=== PATIENT | male | born 1995 ===

== ENCOUNTER 2024-01-16 12:01 | Outpatient (CLI) | payer BC, SELFPAY ==
[2024-01-16 12:40] LABS: Basophils Percent Auto 0.9 % (0.2-1.2); Eosinophils Absolute Auto 0.3 K/mm3 (0-0.3); Eosinophils Percent Auto 6.9 % (0-4.4); Hematocrit 46.5 % (42.0-52.0); Hemoglobin 16.2 g/dL (14.0-18.0); Immature Granulocyte Absolute 0.01 K/mm3 (0.00-0.031); Immature Granulocyte Percent A 0.2 % (0-0.5); Lymphocytes Absolute Auto 1.99 K/mm3 (0.9-3.2); Lymphocytes Percent Auto 43.1 % (18.3-44.2); Mean Corpuscular HGB Conc 34.8 g/dl (32-36); Mean Corpuscular Hemoglobin 27.7 pg (26-34); Mean Corpuscular Volume 79.5 fl (80-100); Mean Platelet Volume 9.9 fl (7.4-10.4); Monocytes Absolute Auto 0.4 K/mm3 (0.1-0.6); Monocytes Percent Auto 8.7 % (2.6-8.5); Neutrophils Absolute Auto 1.9 K/mm3 (1.3-6.7); Neutrophils Percent Auto 40.2 % (45.5-73.1); Platelet Count Result 134 k/mm3 (150-375); Red Blood Count 5.85 M/mm3 (4.6-6.20); Red Cell Distribution Width 14.5 % (11.5-14.5); White Blood Count 4.6 K/mm3 (4.5-10.0)
[2024-01-16 12:54] LABS: Alanine Aminotransferase 135 U/L (6-50); Albumin Level 4.2 g/dL (3.5-5.1); Alkaline Phosphatase 184 U/L (38-126); Anion Gap 10 mmol/L (4-12); Aspartate Amino Transferase 72 U/L (17-59); Bilirubin,Total 0.7 mg/dL (0.2-1.3); Blood Urea Nitrogen 15 mg/dL (9-20); Calcium 8.9 mg/dL (8.4-10.2); Carbon Dioxide 27 mmol/L (22-30); Chloride 99 mmol/L (98-107); Cholesterol 193 mg/dL (0-200); Estimated Glomerular Filt Rate > 60; Glucose 407 mg/dL (65-110); Potassium 4.2 mmol/L (3.4-5.0); Sodium 136 mmol/L (137-145)
[2024-01-16 13:04] LABS: LDL Cholesterol Direct 78 mg/dL
[2024-01-16 13:05] LABS: Triglycerides 799 mg/dL (<150)
[2024-01-16 13:15] LABS: Hemoglobin A1C 11.7 % (<5.7)
[2024-01-16 13:24] LABS: Total Triiodothyronine (T3) 1.64 NG/ML (0.97-1.69)
[2024-01-16 13:49] LABS: Free T4 Free Thyroxine 1.01 ng/mL (0.78-2.19)
== END 2024-01-16 12:02 | disposition home or self-care (01) ==
LOC: ANHLAB 12:07
PROVIDERS: PCP Registered Nurse; Visit Provider Registered Nurse
DX: E11.9 Type 2 diabetes mellitus without complications (principal); I10 Essential (primary) hypertension; R53.83 Other fatigue; E78.5 Hyperlipidemia, unspecified
CPT/HCPCS: 36415; 80053; 80061; 83036; 84439; 84443; 84480; 85025

== ENCOUNTER 2024-01-21 09:52 | Emergency (ER) | payer BC, SELFPAY ==
[2024-01-21 10:05] VITALS: BP 124/86; PULSE 89; RESP 16; TEMP 37; O2SAT 99
--- NOTE | 2024-01-21 10:17 | ED.EAR ---
HPI - Ear Problem General Chief complaint: Ear Stated complaint: right ear/jaw pain Time Seen by Provider: 01/21/24 10:07 Source: patient and RN notes reviewed Mode of arrival: ambulatory Limitations: no limitations History of Present Illness HPI Narrative: Patient presents today with a 2 day history of right ear pain. Denies any additional symptoms to include cough, congestion, rhinorrhea, sore throat fever. Denies decreased hearing or drainage. Currently rates his pain 7/10, which increases with chewing. He has tried ibuprofen with some mild relief. Patient works for the [employer] and wears ear plugs daily. Related Data Allergies Allergy/AdvReac Type Severity Reaction Status Date / Time No Known Allergies Allergy Unverified 01/21/24 09:59 Review of Systems Review of Systems: CONSTITUTIONAL: Denies body aches, fever, chills, or sweats. EYES: Denies visual changes, redness, or discharge. ENT: Denies rhinorrhea, congestion, sore throat. + right ear pain CARDIOVASCULAR: Denies chest pain, palpitations, or edema. RESPIRATORY: Denies cough or dyspnea. GASTROINTESTINAL: Denies abdominal pain, nausea, vomiting, or diarrhea. GENITOURINARY: Denies dysuria or hematuria. SKIN: Denies rash, itching, or wounds. MUSCULOSKELETAL: Denies back pain, joint pain, or myalgia. NEUROLOGIC: Denies headache, numbness, tingling, or weakness. PSYCH: Denies depression or anxiety. [facility] Family History Family History Other Family history of blood dyscrasia Hypertension Social History Social History Smoking status: Never smoker Alcohol intake: never Comments At time of signature, I have reviewed and agree with nursing past medical, surgical, social and family history unless otherwise noted. Please see nursing chart for further information. There is no relevant family history pertinent to the presenting complaint Exam Narrative: GENERAL: Well-appearing, well-nourished, and in no acute distress. HEAD: Normocephalic, atraumatic. EYES: EOMI. No redness or drainage. Conjunctivae normal. ENT: Mucous membranes pink and moist. Nares clear. No rhinorrhea. Bilateral TMs normal. Left ear canal normal. Right ear canal moderately edematous and erythematous. Right tragal tenderness. NECK: Normal AROM. Supple. No lymphadenopathy. CHEST: No respiratory distress. EXTREMITIES: Normal range of motion. No edema. SKIN: Warm, dry, no rash. Capillary refill normal. Normal skin turgor. NEURO: No focal deficits. Alert and oriented x3. Gait steady. PSYCH: Normal affect. No signs of depression or anxiety. Course Course Level of Care: Express Care Visit Vital Signs Vital signs: Vital Signs Temperature 98.6 F 01/21/24 10:05 Pulse Rate 89 01/21/24 10:05 Respiratory Rate 16 01/21/24 10:05 Blood Pressure 124/86 01/21/24 10:05 Pulse Oximetry 99 01/21/24 10:05 Oxygen Delivery Room Air 01/21/24 10:05 Temperature 98.6 F 01/21/24 10:05 Pulse Rate 89 01/21/24 10:05 Respiratory Rate 16 01/21/24 10:05 Blood Pressure 124/86 01/21/24 10:05 Pulse Oximetry 99 01/21/24 10:05 Oxygen Delivery Room Air 01/21/24 10:05 Reviewed Medical Decision Making MDM Narrative Medical decision making narrative: Patient will be treated with Ciprodex for his right otitis externa. Anticipatory guidance given. Differential Diagnosis Differential Diagnosis: Otitis media, otitis externa, ruptured TM, serous otitis Vital Signs Vital Signs: Vital Signs Temperature 98.6 F 01/21/24 10:05 Pulse Rate 89 01/21/24 10:05 Respiratory Rate 16 01/21/24 10:05 Blood Pressure 124/86 01/21/24 10:05 Pulse Oximetry 99 01/21/24 10:05 Oxygen Delivery Room Air 01/21/24 10:05 Temperature 98.6 F 01/21/24 10:05 Pulse Rate 89 01/21/24 10:05 Respiratory Rate 16 01/21/24 10:05 B
== END 2024-01-21 10:25 | disposition home or self-care (01) ==
PROVIDERS: Emergency Provider Nurse Practitioner; PCP Family Medicine
DX: H60.501 Unspecified acute noninfective otitis externa, right ear (principal)
CPT/HCPCS: 99213; G0463

== ENCOUNTER 2024-04-17 11:04 | Outpatient (CLI) | payer BC, SELFPAY ==
[2024-04-17 12:55] LABS: Creatinine Urine 103.9 mg/dL
[2024-04-17 13:00] LABS: MALB Creatinine Ratio 11.6 mg/g (0-30); Microalbumin Urine Random 12.1 mg/L (0-16.7)
== END 2024-04-17 11:05 | disposition home or self-care (01) ==
LOC: ANHLAB 11:05
PROVIDERS: PCP Family Medicine; Visit Provider Family Medicine
DX: E11.9 Type 2 diabetes mellitus without complications (principal)
CPT/HCPCS: 36415; 82043; 83036

== ENCOUNTER 2024-07-15 11:17 | Outpatient (CLI) | payer BC, SELFPAY ==
[2024-07-15 12:25] LABS: Alanine Aminotransferase 115 U/L (6-50); Albumin Level 4.3 g/dL (3.5-5.1); Alkaline Phosphatase 133 U/L (38-126); Anion Gap 11 mmol/L (4-12); Aspartate Amino Transferase 67 U/L (17-59); Bilirubin,Total 0.7 mg/dL (0.2-1.3); Blood Urea Nitrogen 11 mg/dL (9-20); Calcium 9.1 mg/dL (8.4-10.2); Carbon Dioxide 26 mmol/L (22-30); Chloride 101 mmol/L (98-107); Cholesterol 188 mg/dL (0-200); Estimated Glomerular Filt Rate > 60; Glucose 123 mg/dL (65-110); HDL Direct 27 mg/dL; Potassium 4.2 mmol/L (3.4-5.0); Sodium 138 mmol/L (137-145); Triglycerides 168 mg/dL (<150)
[2024-07-15 12:36] LABS: LDL Cholesterol Direct 117 mg/dL
[2024-07-15 13:26] LABS: Hemoglobin A1C 7.9 % (<5.7)
== END 2024-07-15 11:18 | disposition home or self-care (01) ==
LOC: ANHLAB 11:19
PROVIDERS: PCP Family Medicine; Visit Provider Registered Nurse
DX: E78.5 Hyperlipidemia, unspecified (principal); E11.9 Type 2 diabetes mellitus without complications
CPT/HCPCS: 36415; 80053; 80061; 83036

== ENCOUNTER 2024-10-05 09:33 | Emergency (ER) | payer BC, SELFPAY ==
--- NOTE | 2024-10-05 09:34 | ED.SKABFB ---
HPI - Skin/Abscess/Foreign Bdy General Chief complaint: Skin/Abscess/Foreign Body Stated complaint: Rash/Hives Time Seen by Provider: 10/05/24 09:34 Source: patient Mode of arrival: ambulatory Limitations: no limitations History of Present Illness HPI narrative: Benji is a 29-year-old male patient presenting to the clinic today with complaints of a itchy rash times 4-5 days. He reports no difficulty breathing, swallowing, drooling, or tongue swelling. Denies any new foods or medications but states that he did wash his clothes at the laundry mat and is wondering if another detergent got onto his clothes and cause this rash. No one else at home has the same rash. Denies any fevers, chills, or body aches. No URI symptoms. Related Data Home Medications ?Medication ?Instructions ?Recorded ?Confirmed ?Last Taken ?Type metformin 1,000 mg tablet mg 10/05/24 Unknown History semaglutide 0.25 mg or 0.5 mg (2 mg subcut 10/05/24 Unknown History mg/3 mL) subcutaneous pen injector (Ozempic) Allergies Allergy/AdvReac Type Severity Reaction Status Date / Time No Known Allergies Allergy Verified 10/05/24 09:36 Review of Systems Review of Systems: Pertinent positives per HPI. Patient denies any fever, chills, headache, visual changes, dizziness, cough, runny nose, sore throat, shortness of breath, chest pain, palpitations, nausea, vomiting, diarrhea, constipation, abdominal pain, or any urinary issues. PMFSH Family History Family History Other Family history of blood dyscrasia Hypertension Social History Social History Smoking status: Never smoker Alcohol intake: never Comments At the time of my signature, I reviewed and agree with the nursing past medical, surgical, social, and family history. There is no relevant family history pertinent to the patient complaint. Exam Narrative: General: Well-developed, well nourished, in no apparent distress Head: Normocephalic, atraumatic. Cardio: Regular rate and rhythm, s1 and s2 normal, no murmur appreciated. Resp: Clear to auscultation bilaterally, no rhonchi, rales, wheezing or rubs. Integumentary: [place], warm, and dry, intact without lesion, red, raised, wheeled itchy rash to arms, back, legs, and abdomen Course Course Emergency Course: Portions of this record may have been created with voice recognition software. Level of Care: Express Care Visit Vital Signs Vital signs: Vital Signs Temperature 36.9 C 10/05/24 09:45 Pulse Rate 90 10/05/24 09:45 Respiratory Rate 18 10/05/24 09:45 Blood Pressure 143/97 H 10/05/24 09:45 Pulse Oximetry 100 10/05/24 09:45 Oxygen Delivery Room Air 10/05/24 09:45 Temperature 36.9 C 10/05/24 09:45 Pulse Rate 90 10/05/24 09:45 Respiratory Rate 18 10/05/24 09:45 Blood Pressure 143/97 H 10/05/24 09:45 Pulse Oximetry 100 10/05/24 09:45 Oxygen Delivery Room Air 10/05/24 09:45 Vital signs reviewed MDM - Skin/Abscess/Foreign Bdy MDM Narrative Medical decision making narrative: At the time of visit patient is resting comfortably on the exam table. Patient appears to be nontoxic. Plan I suspect patient has hives. Prescription for prednisone and Pepcid was sent to the pharmacy. Instructed the patient to take Benadryl for itching. He may also take [id number] antihistamine such as Zyrtec or Claritin. Denies any difficulty swelling or any respiratory distress. Oxygen saturations 100% on room air in his lung sounds are clear in the office today. Supportive measures were discussed with the patient and they voiced understanding discharge instructions and agrees to treatment plan. Return precautions reviewed Differential Diagnosis Differential diagnosis: Likely abscess of skin or subcutaneous tissue, viral exanthem, dermatophytosis, urticaria, herpes zoster, allergic reaction to drug, cellulitis, eczema, insect bites, impetigo and contact dermatitis Discharge Plan Discharge Clinical Impression: Urticaria Patient Disposition: Home Condition: Stable Instructions: Antibiotic Form, Urticaria (ED) Additional Instructions: Take Pepcid as prescribed Take prednisone as directed Avoid hot showers Avoid scratching as this can cause a secondary infection May take benadryl 25-50mg every 6 hours as needed for itching. Follow up with your PCP in 3-5 days if symptoms persist or sooner if they worsen Go to the Emergency Room if symptoms worsen- fever, rash spreading with treatment, shortness of breath, tongue swelling, drooling, or chest pain Patient Language: Thai Prescriptions: New prednisone 10 mg tablet 10 mg PO DAILY Qty: 30 0RF Rx Instructions: 60mg po daily on day 1, 40mg po daily on days 2-4, 30mg po daily on days 5-6, 20mg po daily on days 7-8, 10mg po daily on days 9-10 famotidine [Pepcid] 40 mg tablet 40 mg PO DAILY 10 Days Qty: 10 0RF No Action metformin 1,000 mg tablet Ozempic 0.25 mg or 0.5 mg (2 mg/3 mL) pen injector SUBCUT Follow-up/Referrals: Lauri Lamb MD [Primary Care Provider] - Stand Alone Forms: Work/School Release IP Time of Disposition: 09:54 Quality NIHSS Nursing Documentation ED NIHSS nursing documentation: reviewed/agree
[2024-10-05 09:45] VITALS: BP 143/97; PULSE 90; RESP 18; TEMP 36.9; O2SAT 100
== END 2024-10-05 10:00 | disposition home or self-care (01) ==
PROVIDERS: Emergency Provider Nurse Practitioner Family; PCP Family Medicine
DX: L50.9 Urticaria, unspecified (principal); Z79.84 Long term (current) use of oral hypoglycemic drugs
CPT/HCPCS: 99213; G0463

== ENCOUNTER 2024-10-30 07:21 | Outpatient (CLI) | payer BC, SELFPAY ==
--- OUTSIDE RECORDS SUMMARY | 2024-10-30 07:25 | XMS_ITS | Encounter Summary ---
Author Organization [facility] Address [address] [place] [address] Care Team Providers Care Charging Manipulator Name Role Phone Lauri Lamb MD Primary Care Provider Encounter Details Date Type Department Care Team (Late Contact Info) Description 11/02/2018 Lab Requisition [facility] Care Pathology Lab [address] [place] [address] Victor Hugo Bernard MD [address] [address] Illness Social History Tobacco Use Types Packs/Day Years Used Date Smoking Tobacco: Never Assessed Sex and Gender Information Value Date Recorded Sex Assigned at Not on file Legal Sex Male 12:04 PM CDT Gender Identity Not on file Sexual Orientation Not on file documented as of this encounter Plan of Treatment Upcoming Encounters Date Type Department Care Team (Late Contact Info) Description 04/17/2025 11:30 AM CDT Appointment [facility] [address] [place] [id number] Susanne Shrestha, MANAGING EDITOR-NEUROPHYSIOLOGICAL TECHNICIAN [address] [place] [address] [facility] [place] [address] 04/17/2025 12:30 PM CDT Office Visit [facility] [address] [facility], [place] [address] Susanne Shrestha, MANAGING EDITOR-NEUROPHYSIOLOGICAL TECHNICIAN [address] [place] [address] documented as of this encounter Procedures Procedure Name Priority Date/Time Associated Diagnosis Comments PATHOLOGY TISSUE Routine 10/31/2018 12:1 2 PM CDT Illness documented in this encounter Results * PATHOLOGY TISSUE (10/31/2018 12:12 PM CDT) Case Report Surgical Pathology Report Case: [id number] Authorizing Provider: Victor Hugo Bernard MD Collected: 10/31/2018 12:12 PM Pathologist: Erinn Cook MD Received: 11/02/2018 12:12 PM Specimen: Slide Consultation, OSC: [id number] 11/07/2018 9:16 AM CDT [facility] PATHOLOGY LAB Final Diagnosis Liver, biopsy (OSC: [id number], 10/31/18): - Well differentiated hepatocellular lesion (SEE COMMENT) - Steatohepatitis, NAFLD activity score 5/8 - Extensive bridging fibrosis, stage 3 11/07/2018 9:16 AM CDT [facility] PATH[facility] Microscopic Description and Comment Sections of the liver biopsy provided for review show mild steatosis (10%) in an azonal distribution and moderate lobular inflammation (2-4 foci/20x). There are frequent ballooned hepatocytes with Maira Denk bodies. There is also architectural distortion due to fibrotic bands. Scattered residual portal tracts are identified. Portal/septal inflammation is minimal to mild without interface activity.The trichrome stain provided is uninterpretable due to technical artifact. The provided reticulin stain shows no loss of reticulin. The PASD stain is negative for alpha-1 antitrypsin globules, the iron stain is negative, and the PAS stain is noncontributory. Although the architecture is altered due to fibrosis, an obvious mass-forming lesion is not evident in this material. A deeper repeat H&E and trichrome stain (performed at [facility]) again show steatosis, inflammation, and ballooning, as well as dense perisinusoidal fibrosis, periportal fibrosis, extensive bridging and focal nodular formation worrisome for cirrhosis. However, in several areas, the fibrotic septa only incompletely surround small nodules, conservatively staged as 3 (bridging fibrosis). In addition, these deeper sections of the cores show a span of ~5 mm without fibrotic bands or nodularity. In this area, there are no portal tracts (absence of normal or cirrhotic architecture) and mild sinusoidal dilatation. Additional immunostains performed and interpreted at [facility] show Glypican-3 is negative, including in the area of interest; beta-catenin has no nuclear staining including in the area of interest or otherwise; a CD34 stain is negative for a diffuse sinusoidal pattern. A glutamine synthetase stain was attempted, but the area of interest is not present on this even deeper section. The liver biopsy has several near-cirrhotic cores with steatosis, inflammation, and ballooning diagnostic for steatohepatitis. In the correct clinical setting, the findings would support a diagnosis of ROMERO, with NAFLD activity score of 5/8 (steatosis-1, inflammation-2, ballooning-2), and stage 3 (nearly 4). There is also a well-defined area without the same background architecture. In the clinical context of mass lesions, this could correlate with a small lesion or a small portion of a mass-forming lesion. The differential diagnosis includes regenerative nodules, adenoma, or even very well differentiated hepatocellular carcinoma. In a cirrhotic liver, neoplastic hepatocellular lesions are typically hepatocelllular carcinoma rather than adenoma. However, in the small amount of tissue available, the morphologic features are extremely bland, do not show loss of reticulin, do not show Glypican 3 staining, and do not have diffuse sinusoidal CD34 as commonly seen in HCC; there is also no evidence of a beta-catenin mutation. Another possibility for this lesion is a large regenerative nodule in the setting of cirrhosis (total length on the slide is 0.5 cm). Unfortunately, the extremely small sample size does not allow for a more definitive classification. 11/07/2018 9:16 AM [facility] Clinical History 11/07/2018 9:16 AM [facility] Materials Received Received are 12 slide(s) and 1 block (A1) labeled [id number] along with a copy of the outside pathology report. [place] [address]. All original materials are returned to the referring institution, along with a copy of our final report. 11/07/2018 9:16 AM T [facility] PATHOLOGY LAB Disclaimer The performance characteristics of all immunohistochemical and indirect immunofluorescence stains (if any) cited in this report were determined by the Histopathology Laboratory of [facility]. Some of these tests were developed by our own laboratory and have not been cleared or approved by the US Food and Drug Administration. The FDA does not require this test to go through premarket FDA review. These tests are used for clinical purposes. They should not be regarded as investigational or for research. This laboratory is certified under the Clinical Laboratory Improvement Amendments (CLIA) as qualified to perform high complexity clinical laboratory testing. This case has been personally reviewed and interpreted by the attending (teaching) pathologist. 11/07/2018 9:16 AM T [facility] PATH[facility] LAB Embedded Images 11/07/2018 9:16 AM T [facility] PATHOLOGY LAB Pathology/Cytolo gy SURGICAL PATHOLOGY CONSULTATION AND REPORT ON REFERRED SLIDES PREPARED ELSEWHERE / Unknown 10/31/2018 12:12 PM CDT 11/02/2018 12:12 PM CDT us Victor Hugo Bernard MD LAB - PATHOLOGY/CYTOLOGY ORDER ANAMARIA Final Result [facility]OLOGY LAB [address] [phone] documented in this encounter Visit Diagnoses Diagnosis Illness Other unknown and unspecified cause of morbidity or mortality documented in this encounter Care Teams Charging Manipulator Relationship Specialty Start Date End Date Lauri Lamb MD [address] [place] [address] PCP - General Family Medicine 11/21/18 documented as of this encounter
--- OUTSIDE RECORDS SUMMARY | 2024-10-30 07:25 | XMS_ITS | Clinical Summary ---
Author Organization [facility] Remitly Address [address] [place] [address] Care Team Providers Care [employer] Music Teacher Name Role Phone Lauri Lamb MD Primary Care Provider Source Comments [facility],non-owned Affiliates and Associated Physician Practices is amultiple site organization consisting of ambulatory clinics and hospital sitesin [place], [place], [place] and [place]. This disclosure is being madepursuant to the Care Everywhere program and may not contain all information available regarding this patient. Last updated 18.[facility] Rem[facility]ly Allergies No known active allergies Medications * Be aware that medications may not be up to date on this document. Alwaysverify current medications with the patient. vitamin E (TOCOPHERYL) 400 UNIT capsule Take 1 (one) capsule by mouth 2 times daily Active Other Take 2 Each by mouth once daily Liver health Active Milk Thistle 1000 MG CAPS Take 1 capsule by mouth once daily Active Ozempic, 0.25 or 0.5 MG/DOSE, 2 MG/3ML SOPN INJECT 0.25 MG SUBCUTANEOUSLY ONCE A WEEK 4 Active metFORMIN (Glucophage) 1000 MG tablet Take 1 (one) tablet by mouth 2 times daily 4 Active Active Problems Problem Noted Date Diagnosed Date Elevated liver enzymes 11/28/2018 Liver lesion 11/21/2018 Encounters Date Type Department Care Team Description 10/15/2024 1:35 PM CDT - 10/15/2024 11:59 PM CDT Hospital Encounter [facility] LAB OP DRAW STATION [address] [place] [address] Susanne Shrestha APRN-CNP Discharge Disposition: Home or Self Care 10/15/2024 1:30 PM CDT Office Visit [facility] - [facility] [address] [place] [address] Nathan Rutherford MD Swanson, Stephanie N, APRN-CNP Liver lesion (Primary Dx); Other cirrhosis of liver (HCC); Metabolic dysfunction-associated steatohepatitis (MASH); Elevated liver enzymes 10/15/2024 9:55 AM CDT - 10/15/2024 1:34 PM CDT Hospital Encounter [facility] MRI [address] [place] [address] Susanne Shrestha APRN-CNP Discharge Disposition: Home or Self Care 10/15/2024 Travel from Last 3 Months Immunizations Immunization Administration Dates Next Due JOSE LUISID MAYRA PRIMARY 18+YR 08/25/2020 Social History Tobacco Use Types Packs/Day Years Used Date Smoking Tobacco: Never Smokeless Tobacco: Never Tobacco Cessation:Counseling Given: Not Answered Alcohol Use Standard Drinks/Week Comments No 0 (1 standard drink = 0.6 oz pur e alcohol) Sex and Gender Information Value Date Recorded Sex Assigned at Not on file Legal Sex Male 12:04 PM CDT Gender Identity Not on file Sexual Orientation Not on file Last Filed Vital Signs Vital Sign Reading Time Taken Comments Blood Pressure 138/100 10/15/2024 12:31 PM CDT Pulse 87 10/15/2024 12:31 PM CDT Temperature 36.9 C (98.5 F) 10/15/2024 12:31 PM CDT Respiratory Rate 21 04/04/2024 4:15 PM CDT Oxygen Saturation 100% 10/15/2024 12:31 PM CDT Inhaled Oxygen Concentration - - Weight 70.1 kg (154 lb 9.6 oz) 10/15/2024 12:31 PM CDT Height 175.3 cm (5' 9 ) 10/15/2024 12:31 PM CDT Body Mass Index 22.83 10/15/2024 12:31 PM CDT Plan of Treatment Upcoming Encounters Date Type Department Care Team (Late st Contact Info) Description 04/17/2025 11:30 AM CDT Appointment [facility] MRI [address] [place] [phone] Susanne Shrestha, MODEL AND MOLD MAKER-PROCESS TECHNICIAN [address] [facility] [address] [place] [address] 04/17/2025 12:30 PM CDT [facility] GI [address] [place] [id number] Susanne Shrestha, MODEL AND MOLD MAKER-PROCESS TECHNICIAN [address] [facility] [address] [place] [address] Health Maintenance Due Date Last Done Comments HIV SCREENING 2010 DTAP/TDAP/TD VACCINES (1 - Tdap) 2014 HEPATITIS B VACCINE (1 of 3 - 19+ 3-dose series) 2014 PNEUMOCOCCAL VACCINE (1 of 2 - PCV) 2014 COVID-19 VACCINE (2 - 2023-2 5 season) 2024 08/25/2020 DEPRESSION SCREENING 06/26/2024 INFLUENZA VACCINE (Season Ended) 2025 07/12/2002, 06/07/2002 ZOSTER VACCINE (1 of 2) 2045 HEPATITIS C SCREENING Completed 10/15/2024 , 11/21/2018 HIB VACCINE Aged Out No longer eligi ble based on patient's age to complete this topic HPV VACCINE Aged Out No longer eligi ble based on patient's age to complete this topic MENINGOCOCCAL (Group B) VACCINE SHARED DECISION-MAKING Aged Out No longer eligible based on patient's age to complete this topic MENINGOCOCCAL GROUPS A/C/Y/W VACCINE Aged Out No longer eligible b ased on patient's age to complete this topic Goals Goal Patient Goal Type Associated Problems Recent Progress Patient-Stated? Author Medication Management General On track( 025 1:19 PM CDT) No Princess Brewer, RN Note: Expected end date: Ongoing Interventions: Take all medications as prescribed Let your doctor know right away about any changes in your medications Make sure to request a refill of your medication at least one week prior to your last dose Make and keep follow-up appointments General On track( 025 1:19 PM CDT) Jocelyn Messina RN Procedures Procedure Name Priority Date/Time Associated Diagnosis Comments SMOOTH MUSCLE ANTIBODY TITER Routine 10/15/2024 3:07 PM CDT Liver lesion Other cirrhosis of liver (HCC) Metabolic dysfunction-associated steatohepatitis (MASH) Elevated liver enzymes SMOOTH MUSCLE ANTIBODY W REFLEX TITER Routine 10/15/2024 3:07 PM CDT Liver lesion Other cirrhosis of liver (HCC) Metabolic dysfunction-associated steatohepatitis (MASH) Elevated liver enzymes PT-INR SLH Routine 10/15/2024 3:07 PM CDT Liver lesion Other cirrhosis of liver (HCC) Metabolic dysfunction-associated steatohepatitis (MASH) Elevated liver enzymes HEPATITIS C ANTIBODY Routine 10/15/2024 3:07 PM CDT Liver lesion Other cirrhosis of liver (HCC) Metabolic dysfunction-associated steatohepatitis (MASH) Elevated liver enzymes HEPATITIS B SURFACE ANTIGEN W RFLX CONFIRMATION Routine 10/15/2024 3:07 PM CDT Liver lesion Other cirrhosis of liver (HCC) Metabolic dysfunction-associated steatohepatitis (MASH) Elevated liver enzymes HEPATITIS B SURFACE ANTIBODY QUANT Routine 10/15/2024 3:07 PM CDT Liver lesion Other cirrhosis of liver (HCC) Metabolic dysfunction-associated steatohepatitis (MASH) Elevated liver enzymes HEPATITIS B CORE ANTIBODY TOTAL Routine 10/15/2024 3:07 PM CDT Liver lesion Other cirrhosis of liver (HCC) Metabolic dysfunction-associated steatohepatitis (MASH) Elevated liver enzymes MITOCHONDRIAL ANTIBODY SCREEN Routine 10/15/2024 3:07 PM CDT Liver lesion Other cirrhosis of liver (HCC) Metabolic dysfunction-associated steatohepatitis (MASH) Elevated liver enzymes GGT Routine 10/15/2024 3:07 PM CDT Liver lesion Other cirrhosis of liver (HCC) Metabolic dysfunction-associated steatohepatitis (MASH) Elevated liver enzymes FERRITIN Routine 10/15/2024 3:07 PM CDT Liver lesion Other cirrhosis of liver (HCC) Metabolic dysfunction-associated steatohepatitis (MASH) Elevated liver enzymes IMMUNOGLOBULINS IGG/IGM/IGA PANEL Routine 10/15/2024 3:07 PM CDT Liver lesion Other cirrhosis of liver (HCC) Metabolic dysfunction-associated steatohepatitis (MASH) Elevated liver enzymes ALPHA FETOPROTEIN BLOOD TUMOR MARKER Routine 10/15/2024 3:07 PM CDT Liver lesion Other cirrhosis of liver (HCC) Metabolic dysfunction-associated steatohepatitis (MASH) Elevated liver enzymes COMPREHENSIVE METABOLIC PANEL Routine 10/15/2024 3:07 PM CDT Liver lesion Other cirrhosis of liver (HCC) Metabolic dysfunction-associated steatohepatitis (MASH) Elevated liver enzymes CBC W AUTO DIFFERENTIAL Routine 10/15/2024 3:07 PM CDT Liver lesion Other cirrhosis of liver (HCC) Metabolic dysfunction-associated steatohepatitis (MASH) Elevated liver enzymes MRI ABDOMEN WWO CONTRAST Routine 10/15/2024 10:53 AM CDT Liver lesion Other cirrhosis of liver (HCC) Metabolic dysfunction-associated steatohepatitis (MASH) from Last 3 Months Results * PT-INR [facility] (10/15/2024 3:07 PM CDT) PT 13.2 12.1 - 14.8 Seconds 10/15/2024 4:09 PM CDT [facility] INR 1.0 See Comment 10/15/2024 4:09 PM CDT [facility] Comment:The suggested therap eutic range for standard coumadin (warfarin) therapy is an INR of 2.0-3.0. For high-risk patients (Mechanical Mitral Valve Prosthesis, etc.), the suggested prophylactic therapeutic range is an INR of 2.5-3.5. Blood BLOOD SPECIMEN / Unknown Lab Venipuncture / Unknown 10/15/2024 3:07 PM CDT 10/15/2024 3:30 PM CDT Susanne Shrestha APRN-PROCESS TECHNICIAN LAB - COAGULATION O RDERABLES Final Result Performing Organization Address City/[facility]/ZIP Co de Phone Number [facility] [place] [address], [facility] [phone] * (ABNORMAL) SMOOTH MUSCLE ANTIBODY W REFLEX TITER (10/15/2024 3:07 PM CDT) F-Actin Antibody IgG 23(H) 0 - 19 Units 10/17/2024 6:46 PM CDT [facility] ([facility]) Comment: REFERENCE INTERVAL: F-Actin (Smooth Muscle) Antibody, IgG by LUCY 19 Units or less ....... Negative 20 - 30 Units .......... Weak Positive-Suggest repeat testing in two to three weeks with fresh specimen. 31 Units or greater..... Positive-Suggestive of autoimmune hepatitis type 1 or chronic active hepatitis. F-actin IgG antibodies have been shown to have increased sensitivity for autoimmune hepatitis (AIH) but lower specificity than smooth muscle antibodies (SMA). F-actin IgG antibodies can also be seen in SMA-negative disease controls (non-AIH), especially in patients with primary biliary cirrhosis and chronic hepatitis C infections. Some patients with AIH may be SMA-positive but negative for F-actin IgG. Consider testing for SMA by IFA if suspicion for AIH is strong. Performed By: [facility] [address] [place] [id number] Studio Control Operator: Javier De La Cruz MD, PhD CLIA Number: [id number] Blood BLOOD SPECIMEN / Unknown Lab Venipuncture / Unknown 10/15/2024 3:07 PM CDT 10/15/2024 3:30 PM CDT Susanne Shrestha MODEL AND MOLD MAKER-PROCESS TECHNICIAN LAB - SEROLOGY ORDE RABLES Final Result [facility] ([facility]) [address] * MITOCHONDRIAL ANTIBODY SCREEN (10/15/2024 3:07 PM CDT) Pathologist [facility] Mitochondrial M2 Antibody 3.4 0.0 - 24.9 Units 10/17/2024 6:20 AM CDT [facility] ([facility]) Comment: REFERENCE INTERVAL: Mitochondrial (M2) Antibody, IgG 20.0 Units or less ......... Negative 20.1 - 24.9 Units........... Equivocal 25.0 Units or greater....... Positive Anti-mitochondrial antibodies (AMA) are thought to be present in 90-95% of patients with primary biliary cholangitis (PBC). However, the frequency of detected antibodies may be cohort or assay dependent, as lower sensitivities have been reported. Not all PBC patients are positive for AMA; some patients may be positive for SP100 and/or GP210 antibodies. A negative result does not rule out PBC. Performed By: [facility] [address] [place] [address] Studio Control Operator: Javier De La Cruz MD, PhD CLIA Number: [id number] Blood BLOOD SPECIMEN / Unknown Lab Venipuncture / Unknown 10/15/2024 3:07 PM CDT 10/15/2024 3:30 PM CDT Susanne Shrestha MODEL AND MOLD MAKER-PROCESS TECHNICIAN LAB - CHEMISTRY ORD ERABLES Final Result Performing Organization Address City/[facility]/ZIP Co de Phone Number [facility]) [address] * HEPATITIS B SURFACE ANTIBODY QUANT (10/15/2024 3:07 PM CDT) Pathologist [facility] Hepatitis B Virus Surface Antibody Non-react dell Non-react dell 10/15/2024 8:31 PM CDT [facility] Comment: < 8 mIU/mL Hepatitis B surface Antibody (HBsAb). Nonreactive for HBsAb - individual is considered not immune to Hepatitis B Virus infection. Hepatitis B Surface Antibody Quantitative <3.0 <8.0 mIU/mL 10/15/2024 8:31 PM CDT [facility] Comment: Hepatitis B Surface Antibody Numeric Result Interpretation: Nonreactive: <8.0 mIU/mL Indeterminate: 8.0 - 12.0 mIU/mL Reactive: >12.0 mIU/mL Blood BLOOD SPECIMEN / Unknown Lab Venipuncture / Unknown 10/15/2024 3:07 PM CDT 10/15/2024 3:30 PM CDT Narrative [facility] - 10/15/2024 8:31 PM CDT This assay should not be used for blood, plasma, or tissue donor screening. This assay is not recommended for neonates born to HBV-infected or suspected HBV-infected mothers. Susanne Shrestha APRN-[facility] LAB - SEROLOGY ORDE RABLES Final Result Performing Organization Address City/[facility]/ZIP Co de Phone Number [address] [address], [facility] [phone] * SMOOTH MUSCLE ANTIBODY TITER (10/15/2024 3:07 PM CDT) Smooth Muscle Antibody IgG Titer <1:20 <1:20 10/19/2024 9:45 AM CDT [facility] ([facility]) Comment: INTERPRETIVE INFORMATION: Smooth Muscle Ab, IgG Titer Less than 1:20 ........ Negative - No antibody detected. 1:20 - 1:80 .......... Weak Positive - Suggest repeat in two to three weeks with fresh specimen. 1:160 or greater ...... Positive - Suggestive of autoimmune hepatitis or chronic active hepatitis. Performed By: [facility] [address] [place] [id number] Studio Control Operator: Javier De La Cruz MD, PhD CLIA Number: [id number] Blood BLOOD SPECIMEN / Unknown Lab Venipuncture / Unknown 10/15/2024 3:07 PM CDT 10/15/2024 3:30 PM CDT Susanne Shrestha MODEL AND MOLD MAKER-PROCESS TECHNICIAN LAB - CHEMISTRY ORD ERABLES Final Result [facility] ([facility]) [address] [place] [address], [facility] * ALPHA FETOPROTEIN BLOOD TUMOR MARKER (10/15/2024 3:07 PM CDT) [facility] Alpha-Fetoprote in Tumor Marker 4.4 <=8.3 ng/mL 10/15/2024 4:29 PM CDT [facility] Comment: AFP values will vary depending on testing procedure used. Results are not comparable across different methods. AFP values obtained by [facility] using an Alonzo Alinity Immunoassay. Blood BLOOD SPECIMEN / Unknown Lab Venipuncture / Unknown 10/15/2024 3:07 PM CDT 10/15/2024 3:41 PM CDT Susanne Shrestha MODEL AND MOLD MAKER-PROCESS TECHNICIAN LAB - CHEMISTRY ORD ERABLES Final Result [facility] [address] [place] [address], [facility] [phone] * (ABNORMAL) CBC WITH DIFFERENTIAL (10/15/2024 3:07 PM CDT) [facility] WBC 5.4 4.0 - 10.7 x10E9/L 10/15/2024 3:54 PM CDT [facility] RBC Count 6.14(H) 4.30 - 5.80 x10E12/L 10/15/2024 3:54 PM CDT [facility] Hemoglobin 16.3 13.3 - 17.5 g/dL 10/15/2024 3:54 PM CDT [facility] Hematocrit 47.9 38.7 - 51.1 % 10/15/2024 3:54 PM CDT [facility] MCV 78.0(L) 80.0 - 98.0 fL 10/15/2024 3:54 PM CDT [facility] MCH 26.5(L) 26.7 - 33.6 pg 10/15/2024 3:54 PM CDT [facility] MCHC 34.0 31.7 - 36.3 g/dL 10/15/2024 3:54 PM CDT [facility] RDW-CV 15.0(H) 11.3 - 14.8 % 10/15/2024 3:54 PM [facility] Platelet Count 146(L) 150 - 420 x10E9/L 10/15/2024 3:54 PM [facility] MPV 9.2 7.8 - 11.4 fL 10/15/2024 3:54 PM [facility] Neutrophil % 36.5(L) 41.0 - 74.0 % 10/15/2024 3:54 PM [facility] Lymphocyte % 48.6(H) 17.0 - 47.0 % 10/15/2024 3:54 PM [facility] Monocyte % 8.7 3.0 - 11.0 % 10/15/2024 3:54 PM [facility] Eosinophil % 5.4 0.0 - 7.0 % 10/15/2024 3:54 PM [facility] Basophil % 0.6 0.0 - 1.6 % 10/15/2024 3:54 PM [facility] Immature Granulocytes % 0.2 0.0 - 1.0 % 10/15/2024 3:54 PM [facility] Neutrophil Absolute 1.97 1.60 - 7.50 x10E9/L 10/15/2024 3:54 PM [facility] Lymphocyte Absolute 2.62 1.00 - 4.40 x10E9/L 10/15/2024 3:54 PM [facility] Monocyte Absolute 0.47 0.15 - 1.00 x10E9/L 10/15/2024 3:54 PM [facility] Eosinophil Absolute 0.29 0.00 - 0.60 x10E9/L 10/15/2024 3:54 PM [facility] Basophil Absolute 0.03 0.00 - 0.13 x10E9/L 10/15/2024 3:54 PM [facility] Blood BLOOD SPECIMEN / Unknown Lab Venipuncture / Unknown 10/15/2024 3:07 PM CDT 10/15/2024 3:41 PM T us Susanne N Shrestha MODEL AND MOLD MAKER-PROCESS TECHNICIAN LAB - HEMATOLOGY OR DERABLES Final Result [facility] [address] [place] [address], [facility] [phone] * (ABNORMAL) COMPREHENSIVE METABOLIC PANEL (10/15/2024 3:07 PM T) BUN 6(L) 7 - 26 mg/dL 10/15/2024 4:10 PM [facility] Creatinine 0.52(L) 0.71 - 1.16 mg/dL 10/15/2024 4:10 PM [facility] Sodium 140 136 - 145 mmol/L 10/15/2024 4:10 PM [facility] Potassium 4.2 3.5 - 4.5 mmol/L 10/15/2024 4:10 PM [facility] Chloride 103 98 - 107 mmol/L 10/15/2024 4:10 PM [facility] CO2 27 22 - 29 mmol/L 10/15/2024 4:10 PM [facility] Glucose 163(H) 70 - 99 mg/dL 10/15/2024 4:10 PM [facility] Calcium 9.0 8.4 - 10.2 mg/dL 10/15/2024 4:10 PM [facility] Protein Total 7.6 6.0 - 8.3 g/dL 10/15/2024 4:10 PM [facility] Albumin 4.0 3.4 - 5.0 g/dL 10/15/2024 4:10 PM [facility] Bilirubin Total 0.9 0.2 - 1.2 mg/dL 10/15/2024 4:10 PM [facility] Alkaline Phosphatase 136 40 - 150 U/L 10/15/2024 4:10 PM [facility] ALT 137(H) 5 - 55 U/L 10/15/2024 4:10 PM [facility] AST 56(H) 5 - 34 U/L 10/15/2024 4:10 PM [facility] Anion Gap 10 6 - 16 10/15/2024 4:10 PM [facility] BUN/Creatinine Ratio 12 7 - 23 10/15/2024 4:10 PM CDT [facility] Osmolality Calculated 291 275 - 295 mOsm/kg 10/15/2024 4:10 PM CDT [facility] Albumin/Globulin Ratio 1.1 1.1 - 2.3 10/15/2024 4:10 PM CDT [facility] eGFR by CKD-EPI >90 >=90 mL/min/1.7 3 m2 10/15/2024 4:10 PM CDT [facility] Blood BLOOD SPECIMEN / Unknown Lab Venipuncture / Unknown 10/15/2024 3:07 PM CDT 10/15/2024 3:41 PM CDT Susanne Shrestha MODEL AND MOLD [facility] LAB - CHEMISTRY ORD ERABLES Final Result Performing Organization Address City/[facility]/ZIP Co de Phone Number [address] [address], [facility] [phone] * HEPATITIS B CORE ANTIBODY TOTAL (10/15/2024 3:07 PM CDT) HBc Antibody Total Non-reacti ve Non-reacti ve 10/15/2024 4:26 PM CDT [facility] Blood BLOOD SPECIMEN / Unknown Lab Venipuncture / Unknown 10/15/2024 3:07 PM CDT 10/15/2024 3:30 PM CDT Susanne Shrestha MODEL AND MOLD [facility] LAB - CHEMISTRY ORD ERABLES Final Result [address] [address], [place] [phone] * HEPATITIS B SURFACE ANTIGEN W RFLX CONFIRMATION (10/15/2024 3:07 PM CDT) Hepatitis B Virus Surface Antigen Non-reacti ve Non-reacti ve 10/15/2024 4:26 PM CDT [facility] Blood BLOOD SPECIMEN / Unknown Lab Venipuncture / Unknown 10/15/2024 3:07 PM CDT 10/15/2024 3:30 PM CDT Susanne Shrestha [facility]NC[facility] LAB - CHEMISTRY ORD ERABLES Final Result [address] [address], [place] [phone] * (ABNORMAL) GGT (10/15/2024 3:07 PM CDT) GGT 472(H) 9 - 64 Units/L 10/15/2024 4:10 PM CDT [facility] Blood BLOOD SPECIMEN / Unknown Lab Venipuncture / Unknown 10/15/2024 3:07 PM CDT 10/15/2024 3:41 PM CDT Susanne Shrestha [facility] LAB - CHEMISTRY ORD ERABLES Final Result Performing Organization Address [facility]/ZIP Co de Phone Number [address] [address], [place] [phone] * (ABNORMAL) IMMUNOGLOBULINS IGG/IGM/IGA PANEL (10/15/2024 3:07 PM CDT) IgG 1,780(H) 767 - 1,590 mg/dL 10/15/2024 4:08 PM CDT [facility] IgM 194 37 - 286 mg/dL 10/15/2024 4:08 PM CDT [facility] IgA 219 61 - 356 mg/dL 10/15/2024 4:08 PM CDT [facility] Blood BLOOD SPECIMEN / Unknown Lab Venipuncture / Unknown 10/15/2024 3:07 PM CDT 10/15/2024 3:30 PM CDT Susanne Shrestha [facility] LAB - CHEMISTRY ORD ERABLES Final Result Performing Organization Address City/[facility]/ZIP Co de Phone Number [address] [address], [place] [phone] * HEPATITIS C ANTIBODY (10/15/2024 3:07 PM CDT) Hepatitis C Antibody Non-react dell Non-reac tive 10/15/2024 4:26 PM CDT [facility] Comment:Hepatitis C Antibody screen indicates no serologic evidence of past or current infection with Hepatitis C Virus. Patients with unexplained liver disease who are immunocompromised or suspected of having acute Hepatitis C infection may benefit from Nucleic Acid Test (MATEUS) for Hepatitis C Viral RNA to confirm Hepatitis C status. Blood BLOOD SPECIMEN / Unknown Lab Venipuncture / Unknown 10/15/2024 3:07 PM CDT 10/15/2024 3:30 PM CDT Susanne Shrestha MODEL AND MOLD [facility] LAB - CHEMISTRY ORD ERABLES Final Result Performing Organization Address City/[facility]/ZIP Co de Phone Number [address] [address], [facility] [phone] * FERRITIN (10/15/2024 3:07 PM CDT) Pathologist [facility] Ferritin 69 22 - 275 ng/mL 10/15/2024 4:26 PM CDT [facility] Blood BLOOD SPECIMEN / Unknown Lab Venipuncture / Unknown 10/15/2024 3:07 PM CDT 10/15/2024 3:30 PM CDT Susanne Shrestha MODEL AND MOLD MAKER-[facility] LAB - CHEMISTRY ORD ERABLES Final Result Performing Organization Address City/[facility]/ZIP Co de Phone Number [address] [address], [place] [phone] * MRI Abdomen Wwo Contrast (10/15/2024 10:53 AM CDT) Anatomical Region Laterality Modality Abdomen Magnetic Resonan ce 10/15/2024 11:4 8 AM CDT Impressions 10/15/2024 1:02 PM CDT Impression: 1.Demonstration of multiple T1 hyperintense observations throughout the hepatic parenchyma most likely representing regenerative nodules with patient's known diagnosis of cirrhosis; LR-3. Some observations exhibit faint arterial enhancement without washout or restricted diffusion; LR-3. No significant growth in lesions from prior. Recommend continued yearly follow-up to assess for stability. 2.Diffusely nodular hepatic architecture could suggest cirrhosis. Report dictated by Charlene Pineda MD (radiology manager). I, Twin Terrell MD have personally reviewed and interpreted this examination/study. > Interpreting Provider: Twin Terrell MD on 10/15/2024 1:02 PM Narrative 10/15/2024 1:02 PM CDT PROCEDURE: MRI ABDOMEN WWO CONTRAST, DATE/TIME OF EXAM: 10/15/2024 10:53 AM, LOCATION [facility] INDICATION: K76.9: Liver lesion K74.69: Other cirrhosis of liver (HCC) K75.81: Metabolic dysfunction-associated steatohepatitis (MASH) ADDITIONAL CLINICAL INFORMATION: Ordering Provider Reason For Exam: HCC screening, liver lesions Technologist Note: Additional: COMPARISON: MRI of the abdomen dated 04/04/2024 TECHNIQUE: MRI of the abdomen and pelvis was performed prior to and following the uneventful administration of 12 mL of Multihance intravenous gadolinium contrast according to standard protocol. Findings: Lower Chest: Normal. Hepatobiliary system Liver morphology: Diffuse nodular hepatic architecture. No significant nodularity of the hepatic outline seen. Steatosis: There is mild diffuse hepatic steatosis. Varices: None. Spleen: Enlarged, measuring 14.5 cm in craniocaudal axis Ascites: None. Focal liver observations Demonstration of innumerable T1 hypointense observations the hepatic parenchyma. Most of these observations exhibit no arterial enhancement on subtraction imaging. For reference there is a T1 hyperintense lesion in hepatic segment 8 measuring 2.5 cm, previously 2.7 cm on similar remeasurement (series 9, image 20); LR-3. Scattered lesions exhibit faint arterial hyperenhancement without washout or restricted diffusion. There is a 1.7 centimeters lesion in hepatic segment 8 (series 9, image 61) with mild arterial enhancement on subtraction images (series 10, image 61) without washout or restricted diffusion; LR-3. A differential diagnosis to be considered is multiple hepatic adenomas. Hepatic vasculature Portal and hepatic veins: Patent. Arterial anatomy: Conventional. Gallbladder and bile ducts Gallbladder: Normal. Bile ducts: Nondilated. Retroperitoneum Pancreas: Normal. IV ascites seen cyst in the tail the pancreas is not visualized. Adrenals: Normal. Kidneys: Unchanged subcentimeter cysts in the right kidney. Lymph nodes: No lymphadenopathy. Gastrointestinal: Imaged bowel and mesentery are normal. Other findings: None. Procedure Note Twin Terrell MD - 10/15/2024 PROCEDURE: MRI ABDOMEN WWO CONTRAST, DATE/TIME OF EXAM: 510:53 AM, LOCATION [facility] INDICATION: K76.9: Liver lesion K74.69: Other cirrhosis of liver (HCC) K75.81: Metabolic dysfunction-associated steatohepatitis (MASH) ADDITIONAL CLINICAL INFORMATION: Ordering Provider Reason For Exam: HCC screening, liver lesions Technologist Note: Additional: COMPARISON: MRI of the abdomen dated 04/04/2024 TECHNIQUE: MRI of the abdomen and pelvis was performed prior to and following the uneventful administration of 12 mL of Multihanceintravenous gadolinium contrast according to standard protocol. Findings: Lower Chest: Normal. Hepatobiliary system Liver morphology: Diffuse nodular hepatic architecture. No significant nodularity of the hepatic outline seen. Steatosis: There is mild diffuse hepatic steatosis. Varices: None. Spleen: Enlarged, measuring 14.5 cm in craniocaudal axis Ascites: None. Focal liver observations Demonstration of innumerable T1 hypointense observations the hepatic parenchyma. Most of these observations exhibit no arterial enhancementon subtraction imaging. For reference there is a T1 hyperintense lesion in hepatic segment 8 measuring 2.5 cm, previously 2.7 cm on similar remeasurement (series 9, image 20); LR-3. Scattered lesions exhibit faint arterial hyperenhancement withoutwashout or restricted diffusion. There is a 1.7 centimeters lesion in hepatic segment 8 (series 9, image 61) with mild arterial enhancement on subtraction images (series 10, image 61) without washout or restricted diffusion; LR-3. A differential diagnosis to be considered is multiple hepatic adenomas. Hepatic vasculature Portal and hepatic veins: Patent. Arterial anatomy: Conventional. Gallbladder and bile ducts Gallbladder: Normal. Bile ducts: Nondilated. Retroperitoneum Pancreas: Normal. IV ascites seen cyst in the tail the pancreas is not visualized. Adrenals: Normal. Kidneys: Unchanged subcentimeter cysts in the right kidney. Lymph nodes: No lymphadenopathy. Gastrointestinal: Imaged bowel and mesentery are normal. Other findings: None. 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 Some observations exhibit faint arterial enhancement without washout or restricted diffusion;LR-3. No significant growth in lesions from prior. Recommend continued yearly follow-up to assess for stability. 2.Diffusely nodular hepatic architecture could suggest cirrhosis. Report dictated by Charlene Pineda MD (radiology manager). I, Twin Terrell MD have personally reviewed and interpreted this examination/study. > Interpreting Provider: Twin Terrell MD on 51:02 PM Susanne Shrestha MODEL AND MOLD MAKER-PROCESS TECHNICIAN MR ORDERABLES Fin al Result from Last 3 Months Insurance [facility] Address: [facility] [id number] [place] [phone] Care Teams [employer] Relationship Specialty Start Date End Date Lauri Lamb MD [address] [place] [address] PCP - General Family Medicine 11/21/18
[2024-10-30 08:07] LABS: Hemoglobin A1C 8.2 % (<5.7)
[2024-10-30 09:47] LABS: MALB Creatinine Ratio 27.4 mg/g (0-30); Microalbumin Urine Random 38.9 mg/L (0-16.7)
== END 2024-10-30 07:22 | disposition home or self-care (01) ==
PROVIDERS: PCP Family Medicine; Visit Provider Registered Nurse
DX: E11.9 Type 2 diabetes mellitus without complications (principal)
CPT/HCPCS: 36415; 82043; 83036